=== PATIENT | male | born 1985 | race Caucasian/White ===

== ENCOUNTER 2022-01-01 17:50 | Emergency (ER) | payer BC, SELFPAY ==
[2022-01-01 20:41] LABS: Absolute Lymphocytes (CBC) 2.1 K/uL (0.7-4.9); Hematocrit 42.2 % (39.6-49.0); Lymphocytes % 29.7 % (15.3-44.8); MCV 88.1 fL (80-100); MPV 6.6 fL (7.6-11.3); RBC Red Blood Cell Count 4.79 M/uL (4.33-5.43)
[2022-01-01 20:43] LABS: Protime INR 1.02
[2022-01-01 20:50] LABS: Urine Blood Negative (Negative); Urine Glucose Negative (Negative); Urine Protein Negative (Negative); Urine Specific Gravity 1.025 (1.005-1.030); Urine pH 5.5 (5.0-7.0)
[2022-01-01] MEDS ORDERED: NA CHLORIDE 0.9% 1,000 ML ONE (21:06)
[2022-01-01] MEDS ORDERED: ONDANSETRON 4 MG/2 ML VIAL ONE (21:06)
[2022-01-01 21:12] LABS: Barbiturates NEGATIVE (NEGATIVE); Benzodiazepines NEGATIVE (NEGATIVE); Cocaine NEGATIVE (NEGATIVE); METHAMPHETAM NEGATIVE (NEGATIVE); Methadone NEGATIVE (NEGATIVE); Opiates NEGATIVE (NEGATIVE); Phencyclidine NEGATIVE (NEGATIVE); THC Cannibis NEGATIVE (NEGATIVE)
[2022-01-01 21:20] LABS: Albumin 4.5 g/dL (3.4-5.0); Bilirubin Direct 0.2 mg/dL (0-0.2); Magnesium 1.5 mg/dL (1.8-2.4); Potassium 3.4 mmol/L (3.5-5.1); Protein, Total 7.6 g/dL (6.4-8.2)
[2022-01-01 21:27] LABS: Urine Bacteria <20 /HPF (<20); Urine RBC <5 /HPF (None Seen)
[2022-01-01] MEDS ORDERED: MAGNESIUM SULFATE 1 gm IVPB 0 GM/0 ML BAG IV ONE (21:52)
[2022-01-01] MEDS ORDERED: Magnesium Sulfate 2gm IVPB 2 G/50 ML BAG IV ONE (22:00)
--- NOTE | 2022-01-01 23:01 | ER ---
Nurse's Notes [facility] Name: Anam Mares Age: 36 yrs Sex: Male : 1985 Arrival Date: 01/01/2022 Time: 17:54 Bed 2 Private MD: Diagnosis: Hypomagnesemia;Hypokalemia;Hypertensive heart disease without heart failure Presentation: 01/01 18:05 Chief complaint: Patient states: "I was in the hospital last week for dehydration, I hb feel like that again." Pt reports he is diabetic, has not checked BGL "in a few days" because he "didn't feel like it" and has consumed approx 8 bottles of water today. Coronavirus screen: At this time, the client does not indicate any symptoms associated with coronavirus-19. Ebola Screen: No symptoms or risks identified at this time. Initial Sepsis Screen: Does the patient meet any 2 criteria? No. Patient's initial sepsis screen is negative. Does the patient have a suspected source of infection? No. Patient's initial sepsis screen is negative. Risk Assessment: Do you want to hurt yourself or someone else? Patient reports no desire to harm self or others. Onset of symptoms was January 01, 2022. 18:05 Method Of Arrival: Ambulatory hb 18:05 Acuity: MAYA 3 hb Historical: - Allergies: 23:51 No Known Allergies; aa9 - Immunization history:: Adult Immunizations up to date. - Social history:: Smoking status: unknown. Screenin:51 Abuse screen: Denies threats or abuse. Denies injuries from another. Nutritional aa9 screening: No deficits noted. Tuberculosis screening: No symptoms or risk factors identified. Fall Risk None identified. Assessment: 22:50 General: Appears in no apparent distress. comfortable, Behavior is calm, cooperative. aa9 Pain: Denies pain. Vital Signs: 18:05 BP 182 / 106; Pulse 88; Resp 16; Temp 98.5; Pulse Ox 100% on R/A; Weight 107.05 kg; hb Height 6 ft. 3 in. (190.50 cm); Pain 0/10; 22:48 BP 150 / 90; Pulse 68; Resp 16 S; Pulse Ox 100% on R/A; Pain 0/10; aa9 23:52 BP 134 / 81; Pulse 63; Resp 18; Pulse Ox 100% on R/A; kd3 18:05 Body Mass Index 29.50 (107.05 kg, 190.50 cm) hb ED Course: 17:54 Patient arrived in ED. as 18:05 Arm band placed on. hb 18:10 Triage completed. hb 18:15 Jordi Bolaños PA is PHCP. cp 18:15 Benja Schaefer DO is Attending Physician. cp 18:33 Stepan Clancy MD is Attending Physician. cp 20:19 Raj Hall, LO is Primary Nurse. as6 20:29 Inserted saline lock: 20 gauge in right antecubital area, using aseptic technique. as6 Blood collected. 20:31 Basic Metabolic Panel Sent. as6 20:31 CBC with Diff Sent. as6 20:31 LFT's Sent. as6 20:31 PT-INR Sent. as6 20:31 Magnesium Sent. as6 20:52 Basic Metabolic Panel Sent. as6 20:52 LFT's Sent. as6 20:52 Magnesium Sent. as6 22:51 Patient has correct armband on for positive identification. Placed in gown. Bed in low aa9 position. Call light in reach. Side rails up X2. Adult w/ patient. 23:51 No provider procedures requiring assistance completed. IV discontinued, intact, aa9 bleeding controlled, No redness/swelling at site. Pressure dressing applied. Administered Medications: 21:07 Drug: NS 0.9% 1000 ml Route: IV; Rate: 1 bolus; Site: right antecubital; aa9 22:07 Follow up: Response: No adverse reaction; IV Status: Completed infusion; IV Intake: as6 1000ml 21:07 Not Given (Patient Refused): Zofran (Ondansetron) 4 mg IVP once; over 2 minutes aa9 22:00 Drug: Magnesium Sulfate 2 grams Route: IVPB; Infused Over: 2 hrs; Site: right as6 antecubital; 23:52 Follow up: Response: No adverse reaction; IV Status: Completed infusion kd3 Medication: 23:51 VIS not applicable for this client. aa9 Intake: 22:07 IV: 1000ml; Total: 1000ml. as6 Outcome: 23:01 Discharge ordered by . cp 23:51 Discharged to home ambulatory. aa9 23:51 Condition: stable 23:51 Discharge instructions given to patient, family, Instructed on discharge instructions, follow up and referral plans. Demonstrated understanding of instructions, follow-up care. 23:53 Patient left the ED. kd3 Signatures: Shira Wallace Corey, PA PA cp Baxter, Heather, LO RN Raj Hall RN RN as6 Crissy Morales RN RN kd3 Vanessa Rico, RN RN aa9
--- NOTE | 2022-01-01 23:01 | EDPHYS ---
Physician Documentation [facility] Name: Anam Mares Age: 36 yrs Sex: Male : 1985 Arrival Date: 01/01/2022 Time: 17:54 Bed 2 Private MD: ED Physician Stepan Clancy HPI: 01/01 19:45 This 36 yrs old Male presents to ER via Ambulatory with complaints of dehydration. cp 19:45 Patient reports being hospitalized last week for acute kidney failure due to blood cp pressure medication. Patient came to ED tonight to be evaluated. Reports he is having similar symptoms. Denies chest pain, denies abdominal pain, denies vomiting, denies diarrhea. Historical: - Allergies: 23:51 No Known Allergies; aa9 - Immunization history:: Adult Immunizations up to date. - Social history:: Smoking status: unknown. ROS: 19:50 Constitutional: Negative for body aches, chills, fever, poor PO intake. cp 19:50 Eyes: Negative for injury, pain, redness, and discharge. cp 19:50 ENT: Negative for drainage from ear(s), ear pain, sore throat, difficulty swallowing, difficulty handling secretions. 19:50 Cardiovascular: Negative for chest pain, edema, palpitations. 19:50 Respiratory: Negative for cough, shortness of breath, wheezing. 19:50 Abdomen/GI: Negative for abdominal pain, nausea, vomiting, and diarrhea, black/tarry stool, rectal bleeding. 19:50 : Negative for urinary symptoms, difficulty urinating. 19:50 Neuro: Negative for altered mental status, headache, loss of consciousness, syncope, weakness. 19:50 All other systems are negative. Exam: 19:55 Constitutional: The patient appears in no acute distress, alert, awake, cp non-diaphoretic, non-toxic, well developed, well nourished. 19:55 Head/Face: Normocephalic, atraumatic. cp 19:55 Eyes: Periorbital structures: appear normal, Pupils: equal, round, and reactive to light and accomodation, Extraocular movements: intact throughout, Conjunctiva: normal, no exudate, no injection, Sclera: no appreciated abnormality, Lids and lashes: appear normal, bilaterally. 19:55 ENT: External ear(s): are unremarkable, Nose: is normal, Mouth: Lips: moist, Oral mucosa: pink and intact, moist, Posterior pharynx: Airway: no evidence of obstruction, patent. 19:55 Neck: ROM/movement: is normal, is supple, without pain, no range of motions limitations. 19:55 Chest/axilla: Inspection: normal, Palpation: is normal, no crepitus, no tenderness. 19:55 Cardiovascular: Rate: normal, Rhythm: regular, Edema: is not appreciated, JVD: is not appreciated. 19:55 Respiratory: the patient does not display signs of respiratory distress, Respirations: normal, no use of accessory muscles, no retractions, labored breathing, is not present, Breath sounds: are clear throughout, no decreased breath sounds, no stridor, no wheezing. 19:55 Abdomen/GI: Inspection: abdomen appears normal, Palpation: abdomen is soft and non-tender, in all quadrants. 19:55 Back: pain, is absent, ROM is normal. 19:55 Neuro: Orientation: to person, place \T\ time. Mentation: is normal, Cerebellar function: is grossly normal, Motor: moves all fours, strength is normal, Sensation: is normal. 20:10 ECG was reviewed by the Attending Physician. Vital Signs: 18:05 BP 182 / 106; Pulse 88; Resp 16; Temp 98.5; Pulse Ox 100% on R/A; Weight 107.05 kg; hb Height 6 ft. 3 in. (190.50 cm); Pain 0/10; 22:48 BP 150 / 90; Pulse 68; Resp 16 S; Pulse Ox 100% on R/A; Pain 0/10; aa9 23:52 BP 134 / 81; Pulse 63; Resp 18; Pulse Ox 100% on R/A; kd3 18:05 Body Mass Index 29.50 (107.05 kg, 190.50 cm) hb MDM: 20:14 Patient medically screened. 23:00 Data reviewed: vital signs, nurses notes, lab test result(s), EKG. 23:00 Test interpretation: by ED physician or midlevel provider: ECG. Counseling: I had a cp detailed discussion with the patient and/or guardian regarding: the historical points, exam findings, and any diagnostic results supporting the discharge/admit diagnosis, the presence of at least one elevated blood pressure reading (>120/80) during this emergency department visit, lab results, the need for outpatient follow up, a family practitioner, to return to the emergency department if symptoms worsen or persist or if there are any questions or concerns that arise at home. Response to treatment: the patient's symptoms have markedly improved after treatment, and as a result, I will discharge patient. 01/01 18:21 Order name: Glucose, Ancillary Testing; Complete Time: 21:35 EDMS 01/01 19:35 Order name: Basic Metabolic Panel; Complete Time: 21:35 cp 01/01 21:35 Interpretation: Normal except: K 3.4; GLUC 107. cp 01/01 19:35 Order name: CBC with Diff; Complete Time: 21:35 cp 01/01 19:35 Order name: LFT's; Complete Time: 21:35 cp 01/01 19:35 Order name: Magnesium; Complete Time: 21:35 cp 01/01 19:35 Order name: PT-INR; Complete Time: 21:35 cp 01/01 19:35 Order name: EKG; Complete Time: 19:35 cp 01/01 19:35 Order name: Cardiac monitoring; Complete Time: 20:52 cp 01/01 19:35 Order name: Urine Microscopic Only; Complete Time: 21:35 cp 01/01 19:35 Order name: UDS; Complete Time: 21:35 cp 01/01 20:51 Order name: Urine Dipstick-Ancillary; Complete Time: 21:35 EDMS 01/01 19:35 Order name: EKG - Nurse/Tech; Complete Time: 20:52 cp 01/01 19:35 Order name: IV Saline Lock; Complete Time: 20:30 cp 01/01 19:35 Order name: Labs collected and sent; Complete Time: 20:30 cp 01/01 19:35 Order name: O2 Per Protocol; Complete Time: 20:52 cp 01/01 19:35 Order name: O2 Sat Monitoring; Complete Time: 20:52 cp 01/01 19:35 Order name: Urine Dipstick-Ancillary (obtain specimen); Complete Time: 20:52 cp 01/01 21:36 Order name: PO challenge; Complete Time: 22:06 cp 01/01 22:44 Order name: Vital Signs; Complete Time: 22:49 cp EC:10 Rate is 106 beats/min. Rhythm is regular. VA interval is normal. QRS interval is cp normal. QT interval is normal. T waves are Inverted in lead aVR. Interpreted by me. Reviewed by me. Administered Medications: 21:07 Drug: NS 0.9% 1000 ml Route: IV; Rate: 1 bolus; Site: right antecubital; aa9 22:07 Follow up: Response: No adverse reaction; IV Status: Completed infusion; IV Intake: as6 1000ml 21:07 Not Given (Patient Refused): Zofran (Ondansetron) 4 mg IVP once; over 2 minutes aa9 22:00 Drug: Magnesium Sulfate 2 grams Route: IVPB; Infused Over: 2 hrs; Site: right as6 antecubital; 23:52 Follow up: Response: No adverse reaction; IV Status: Completed infusion kd3 Disposition: 01/02 01:04 Co-signature as Attending Physician, Stepan Clancy MD. rn Disposition Summary: 01/01/22 23:01 Discharge Ordered Location: Home cp Problem: new cp Symptoms: have improved cp Condition: Stable cp Diagnosis - Hypomagnesemia cp - Hypokalemia cp - Hypertensive heart disease without heart failure cp Followup: cp - With: Private Physician - When: 2 - 3 days - Reason: Recheck today's complaints Discharge Instructions: - Discharge Summary Sheet cp - Potassium Content of Foods cp - Hypertension, Adult cp - Hypomagnesemia cp - Aspirin and Your Heart cp - Form - Blood Pressure Record Sheet cp - How to Take Your Blood Pressure cp Forms: - Medication Reconciliation Form cp - Thank You Letter cp - Antibiotic Education cp - Prescription Opioid Use cp - Work release form cp Signatures: Dispatcher [employer] EDStepan Gates MD MD rn Page, Corey, PA PA cp Raj Hall RN RN as6 Vanessa Rico RN RN aa9 Crissy Morales RN kd3 Corrections: (The following items were deleted from the chart) 21:57 01/01 19:45 Patient reports being hospitalized last week for acute kidney failure due cp to blood pressure medication. cp
[2022-01-02 00:09] VITALS: TEMP 98.5; O2SAT 100
[2022-01-02 00:12] VITALS: BP 134/81
--- NOTE | 2022-01-02 07:21 | EKG ---
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
--- OUTSIDE RECORDS SUMMARY | 2022-01-03 14:35 | XMS REPORT | Continuity of Care Document ---
:1985 Author Organization [facility] t Address [address] [place] [address] Care Team Providers Name Role Phone [facility] Primary Care Physician Unavailable Shaq WILSON Attending Clinician Erik GARRETTP Attending Clinician Oksana NOVAK Attending Clinician OKSANA Attending Clinician Unavailable Oksana NOVAK Admitting Clinician OKSANA Admitting Clinician Unavailable Problems Condition Condition Condition Status Onset Resolution Last Treating Co mments Source Name Details Category Date Date Treatment Clinician Date VILMA (acute VILMA (acute Disease Active U nivers kidney kidney 12-22 ity of injury) injury) 00:00: [place] [address] Medical Branch Obesity Obesity Disease Active Univers (BMI (BMI 12-22 ity of 30-39.9) 30-39.9) 00:00: [place] [address] Medical Branch Allergies, Adverse Reactions, Alerts Allergy Allergy Status Severity Reaction(s) Onset Inactive Treating Comm ents Source Name Type Date Date Clinician Cefaclor Propensi Active Rash Univer s ty to 12-22 ity of adverse 00:00: [place] reaction Medical s Branch CEFACLOR DRUG Active Rash Univers INGREDI 12-22 ity of 00:00: [place] 00 Medical Branch NO KNOWN Drug Active Univers ALLERGIE Class ity of S [facility] Social History Social Habit Start Date Stop Date Quantity Comments Source History SDOH University o f Alcohol Frequency [facility] edical Branch History SDOH University o f Alcohol Std [place] Medical Drinks Branch History SDNE University o f Alcohol Binge [place] Medic al Branch Exposure to 2021-12-12 2021-12-22 Not sure University of SARS-CoV-2 00:00:00 14:43:00 [place] Medical (event) Branch Tobacco use and 2021-12-22 2021-12-22 User of smokeless Un iversity of exposure 00:00:00 00:00:[address] [facility] Alcohol intake 2021-12-22 2021-12-22 Current drinker of Un iversity of 00:00:00 00:00:00 alcohol (finding) [facility] edical Branch Alcohol Comment 2021-12-22 2021-12-22 occassional Universi ty of 00:00:00 00:00:00 [facility] Sex Ass[birth year] Universit y of 00:00:00 00:00:00 [facility] Smoking Status Start Date Stop Date Source Tobacco smoking consumption Univ ersity of [facility] unknown Branch Medications Ordered Filled Start Stop Current Ordering Indication Dosage Frequency Signature Comments Components Source Medication Medication Date Date Medication? Clinician (SIG) Name Name metFORMIN Yes 1000mg Take 1,000 Univers 500 mg 7-11 mg by ity of tablet 22:00: mouth 2 [place] [address] (two) Medical times Branch daily with meals. fenofibrate Yes 54mg Take 54 mg Univers 54 mg 7-11 by mouth ity of tablet 22:00: daily. [address] Branch rosuvastati Yes 10mg Take 10 mg Univers n 10 mg 7-11 by mouth ity of tablet 22:00: at [place] [address] bedtime. Medical Branch fenofibrate Yes 67mg 67 mg, Univ ers micronized 7-10 Oral, ity of (LOFIBRA) 14:00: DAILY, [place] capsule 67 00 First dose Med ical mg on Sun Branch 12/23/21 at 0900, Until Discontinu ed metFORMIN Yes 1000mg Take 1,000 Univers 500 mg 7-10 mg by ity of tablet 11:44: mouth 2 [place] [address] (two) Medical times [place] daily with meals. fenofibrate Yes 54mg Take 54 mg Univers 54 mg 7-10 by mouth ity of tablet 11:44: daily. [place] [address] Medical Branch rosuvastati Yes 10mg Take 10 mg Univers n 10 mg 7-10 by mouth ity of tablet 11:44: at [place] [address] bedtime. Medical Branch olmesartan- 2021- No 1{tbl} Take 1 U nivers hydrochloro 7-10 07-10 tablet by it y of thiazide 09:02: 00:00 mouth [place] 40-25 mg 44 :00 daily. Medical per tablet Branch rosuvastati Yes 10mg 10 mg, Univ ers n (CRESTOR) 7-10 Oral, QHS, it y of tablet 10 02:00: [place] dose [place] mg 00 on [facility] Medical 12/22/21 at Branch 2100, Until Discontinu ed, Routine NaCl 0.9% Yes 1000mL at 125 Univ ers (NS) IV 709 mL/hr, IV ity of infusion 17:30: [place]fusion[place] 1[place]000 mL 00 CONTINUOUS Medic al , Starting Branch on [facility] 12/22/21 at 1230, Until Discontinu ed, Routine ondansetron Yes 4mg 4 mg, Slow Univers (ZOFRAN 12-22 IV Push, ity of (PF)) 17:19: Q6HPRN, [place] injection 4 53 Starting Medi [place] mg on [facility] 12/22/21 at 1219, Until Discontinu ed, Routine, Nausea and Vomiting (N/V) morpHINE (4 2021- Yes 4mg 4 mg, Slow Univers mg/mL) 12-22 IV Push, ity of injection 4 17:19: 17:18 Q4HPRN, [place] mg 51 :51 Starting Medical on [facility] Branch 12/22/21 at 1219, Until 12/23/21 at 1218, Routine, Pain (scale 7-10) HYDROcodone 2021- Yes 1{tbl} 1 tablet, Univers -acetaminop 12-22 Oral, ity of hen (NORCO 17:19: 17:18 Q6HPRN, [place] 5) 5-325 mg 50 :50 Starting Medi [place] tablet 1 on Sat Branch tablet 12/22/21 at 1219, Until 12/24/21 at 1218, Routine, Pain (scale 4-6) acetaminoph Yes 650mg 650 mg, Un tash en 12-22 Oral, ity of (TYLENOL) 17:19: Q6HPRN, [place] tablet 650 42 Starting Medic al mg on Sat Branch 12/22/21 at 1219, Until Discontinu ed, Routine, Pain (scale 1-3), Temp > 38.5 C NaCl 0.9% 2021- No 1000mL at 999 Uni vers (NS) bolus 12-22 mL/hr, ity of infusion 15:30: 15:28 1,000 mL, [place] 1,000 mL 00 :00 IV Medical Infusion, Branch ONCE, 1 dose, On 12/22/21 at 1030, KRYSTIN NaCl 0.9% 2021- No 1000mL at 999 Uni vers (NS) bolus 12-22 mL/hr, ity of infusion 15:30: 19:58 1,000 mL, [place] 1,000 mL 00 :00 IV Medical Infusion, Branch ONCE, 1 dose, On 12/22/21 at 1030, KRYSTIN magnesium 2021- No 2g 2 g, IV Univ ers sulfate in 12-22 Piggyback, it y of water 2 15:30: 15:28 Administer Tom as gram/50 mL 00 :00 over 60 Medica l (4 %) Minutes, Branch infusion 2 ONCE, 1 g dose, On 12/22/21 at 1030, Routine Vital Signs Vital Name Observation Time Observation Value Comments Source Systolic blood 2021-12-23 13:00:00 138 mm[Hg] Univer sity of pressure [facility] Diastolic blood 2021-12-23 13:00:00 93 mm[Hg] Unive rsity of [facility] Heart rate 2021-12-23 13:00:00 87 /min [facility] Body temperature 2021-12-23 13:00:00 36.56 [facility]ana [facility] Respiratory rate 2021-12-23 13:00:00 18 /min [facility] Oxygen saturation in 2021-12-23 13:00:00 100 /min [facility] Arterial blood by [facility] Pulse oximetry Branch Body weight 2021-12-23 09:00:00 107.457 kg [facility] BMI 2021-12-23 09:00:00 30.01 kg/m2 [facility] Body height 2021-12-22 19:47:00 189.2 cm [facility] Procedures Procedure Date / Time Performing Clinician Source Performed MAGNESIUM 2021-12-23 09:56:00 Oksana [facility] BASIC METABOLIC PANEL 2021-12-23 09:56:00 [facility] ([facility], K, CL, CO2, Medical Branch GLUCOSE, BUN, CREATININE, CA) CBC WITH DIFF 2021-12-23 09:56:00 [facility] 2021-12-22 21:38:00 [facility] POTASSIUM, URINE RANDOM 2021-12-22 21:38:00 Roshan [facility] SODIUM, URINE RANDOM 2021-12-22 21:38:00 Roshan [facility] PROTEIN CREAT RATIO 2021-12-22 21:38:00 Roshan [facility] URINE RANDOM [facility] PHOSPHORUS 2021-12-22 21:11:00 Gaudencio Gandhi [facility] OSMOLALITY, SERUM OR 2021-12-22 21:11:00 Roshan [facility] PLASMA [facility] BASIC METABOLIC PANEL 2021-12-22 21:11:00 [facility] (NA, K, CL, CO2, Medical Branch GLUCOSE, BUN, CREATININE, CA) ACUTE CARE VENOUS BLOOD 2021-12-22 21:10:00 Lucie Barakat [facility] GAS [facility] LACTIC ACID WHOLE BLOOD 2021-12-22 21:10:00 Lucie Barakat [facility] COVID-19 (ID NOW RAPID 2021-12-22 14:42:00 Camelia Valencia [facility] TESTING) Medical Branch URINALYSIS 2021-12-22 13:46:00 Camelia Valencia [facility] PHOSPHORUS 2021-12-22 13:45:00 Erik [facility] CREATINE KINASE 2021-12-22 13:45:00 Erik [facility] MAGNESIUM 2021-12-22 13:45:00 [facility] COMP. MET[facility]OLIC PANEL 2021-12-22 13:45:00 Camelia Valencia [facility] ([id number]) Medical Branch LIPID PANEL 2021-12-22 13:45:00 Lucie Barakat [facility] ([id number])(TOTAL [facility] CHOLESTEROL, TRIGLYCERIDES, HDL) CBC WITH DIFF 2021-12-22 13:45:00 Erik [facility] GLYCOSYLATED HEMOGLOBIN 2021-12-22 13:45:00 Lucie Barakat [facility] (A1C) [facility] LOW-DENSITY 2021-12-22 13:45:00 Lucie Barakat [facility] LIPOPROTEIN, DIRECT Medical Bran ch CONSENT/REFUSAL FOR 2021-12-22 12:57:09 Doctor Unassigned, No Un [facility] DIAGNOSIS AND TREATMENT Name Medical Branch Encounters Start End Encounter Admission Attending Care Care Encounter Source Date/Time Date/Time Type Type Clinicians Facility Department ID 2021-12-25 2021-12-25 Transition SHAHIDA New [id number] Univers 00:00:00 00:00:00 of Care Miriam GUILLAUME [id number] ity of [place] [id number] [facility] [id number] [facility] kayleigh 403 Branch 2021-12-22 2021-12-23 [facility] [id number] Univers 08:23:00 10:00:00 Encounter Gaudencio Gandhi [id number] ity of [place] [id number] [facility] [id number] [address] 2021-12-22 2021-12-23 Inpatient X [facility]SANA [facility] [id number] Univers 08:23:00 10:00:00 GAUDENCIO hicks [facility] Results Test Description Test Time Test Comments Results Result Comments Source Basic Metabolic Panel (NA, K, CL, CO2, GLUCOSE, BUN, 2021-12 11:02:15 CREATININE, CA) Test Item Value Reference Range Interpretation Comme nts NA (test code = 6816506837) 135 mmol/L 135-145 K (test code = 8501928693) 3.7 mmol/L 3.5-5 CL (test code = 3097516507) 103 mmol/L 98-108 CO2 TOTAL (test code = 5427908617) 23 mmol/L 23-31 AGAP (test code = 1797617456) 2-16 BUN (test code = 0753535144) 34 mg/dL 7-23 H GLUCOSE (test code = 0394093641) 171 mg/dL 70-110 H CREATININE (test code = 1.29 mg/dL 0.6-1.25 H 5938958714) CALCIUM (test code = 6094523688) 8.4 mg/dL 8.6-10.6 L eGFR (test code = 3832315554) mL/min/1.73m2 BEATRICE (test code = BEATRICE) Association of Glomerular Filtration Rate (GFR) and Staging of Kidney Disease* + +-------- + ------+| GFR (mL/min/1.73 m2) ?| With Kidney Damage ?| ?Without Kidney Damage+ +-- + +| ?>90 ?| ?Stage one ?| ? Normal ?+ +------- + -------+| ?60-89 ?| ?Stage two ?| ? Decreased GFR ? + +-------- + ------+| ?30-59 ?| ?Stage three ?| ? Stage three ? + +-------- + ------+| ?15-29 ?| ?Stage four ? | ? Stage four ?+ +------- + -------+| ?<15 (or dialysis) ? ?| ?Stage five ? | ? Stage five ?+ +------- + -------+ *Each stage assumes the associated GFR level has been in effect for at least three months. ?Stages 1 to 5, with or without kidney disease, indicate chronic kidney disease. Notes: Determination of stages one and two (with eGFR >59mL/min/1.73 m2) requires estimation of kidney damage for at least three months as defined by structural or functional abnormalities of the kidney, manifested by either:Pathological abnormalities or Markers of kidney damage (including abnormalities in the composition of the blood or urine or abnormalities in imaging tests). Lab Interpretation (test code = Abnormal 90131-3) [facility] [id number] 11:02:15 Test Item Value Reference Range Interpretation Comments MAGNESIUM (test code = 9869456893) 2.1 mg/dL 1.7-2.4 Lab Interpretation (test code = Normal 52954-8) [facility] with [id number] 10:34:49 Test Item Value Reference Range Interpretation Comments WBC (test code = See_Comment [Automated 6690-2) message] The sy stem which generated this result transmitted reference range : 4.20 - 10.70 10*3/?L. The reference range was not used to interpret this result as normal/abnormal . RBC (test code = See_Comment L [Automated 789-8) message] The sy stem which generated this result transmitted reference range : 4.26 - 5.52 10*6/?L. The reference range was not used to interpret this result as normal/abnormal . HGB (test code = 12.6 g/dL 12.2-16.4 718-7) HCT (test code = 35.0 % 38.4-49.3 L 4544-3) MCV (test code = 89.3 fL 81.7-95.6 787-2) MCH (test code = 32.1 pg 26.1-32.7 785-6) MCHC (test code = 36.0 g/dL 31.2-35 H 786-4) RDW-SD (test code = 44.1 fL 38.5-51.6 10639-1) RDW-CV (test code = 14.0 % 12.1-15.4 788-0) PLT (test code = See_Comment L [Automated 777-3) message] The sy stem which generated this result transmitted reference range : 150 - 328 10*3/ ?L. The reference r emily was not used to interpret this result as normal/abnormal . MPV (test code = 9.7 fL 9.8-13 L 96357-4) IPF % (test code = 2.9 % 1.2-10.7 Platelet count 1273197967) measured by fluorescence method. NRBC/100 WBC (test See_Comment [Automat ed code = 3628457656) message] The system which generated this result transmitted reference range : 0.0 - 10.0 /100 WBCs. The refer ence range was not u sed to interpret th is result as normal/abnormal . NRBC x10^3 (test code See_Comment [Auto mated = 3287986038) message] The s ystem which generated this result transmitted reference range : 10*3/?L. The reference range was not used to interpret this result as normal/abnormal . GRAN MAT (NEUT) % 49.8 % (test code = 770-8) IMM GRAN % (test code 0.30 % = 1957945709) LYMPH % (test code = 32.0 % 736-9) MONO % (test code = 9.4 % 5905-5) EOS % (test code = 7.9 % 713-8) BASO % (test code = 0.6 % 706-2) GRAN MAT x10^3(ANC) 3.13 10*3/uL 1.99-6.95 (test code = 9520758671) IMM GRAN x10^3 (test 0-0.06 code = 5711731713) LYMPH x10^3 (test code 2.01 10*3/uL 1.09-3.23 = 731-0) MONO x10^3 (test code 0.59 10*3/uL 0.36-1.02 = 742-7) EOS x10^3 (test code = 0.50 10*3/uL 0.06-0.53 711-2) BASO x10^3 (test code 0.04 10*3/uL 0.01-0.09 = 704-7) Lab Interpretation Abnormal (test code = 26352-3) [facility] LIPOPROTEIN, [id number] 23:29:35 Test Item Value Reference Range Interpretation Comments dLDL Chol (test code = 50 mg/dL See_Comment [Au tomated message] 21158-8) The system [employer] generated this result transmitted ref erence range: <=130. T he reference range was not used to int erpret this result as normal/abnormal . Lab Interpretation (test Normal code = 90538-2) [facility]woodOSMOLALITY, SERUM OR [id number] 23:28:44 Test Item Value Reference Range Interpretation Comments OSMOLALITY (test code = See_Comment [Au tomated message] 2692-2) The system [employer] generated this result transmitted ref erence range: 278 - 30 5 mOsm/kg. The re ference range was not u sed to interpret this result as normal/abnor mal. Lab Interpretation (test Normal code = 14675-9) [facility] METABOLIC PANEL (NA, K, CL, CO2, GLUCOSE, BUN, CREATININE, CA)2021-12-22 21:38:29 Test Item Value Reference Range Interpretation Comments NA (test code = 132 mmol/L 135-145 L 8996346957) K (test code = 3.8 mmol/L 3.5-5 9845252777) CL (test code = 98 mmol/L 98-108 4966149664) CO2 TOTAL (test code = 22 mmol/L 23-31 L 9292377366) AGAP (test code = 2-16 1336442521) BUN (test code = 41 mg/dL 7-23 H 9631298962) GLUCOSE (test code = 124 mg/dL 70-110 H 1020342346) CREATININE (test code = 2.21 mg/dL 0.6-1.25 H 5553996355) CALCIUM (test code = 8.8 mg/dL 8.6-10.6 3432943341) eGFR (test code = mL/min/1.73m2 6410385247) BEATRICE (test code = BEATRICE) Association of Glomerular Filtration Rate (GFR) and Staging of Kidney Disease* + --+ --+ ------+| GFR (mL/min/1.73 m2) ?| With Kidney Damage ?| ?Without Kidney Damage+ --------+ --------+ +| ?>90 ?| ?Stage one ?| ? Normal ?+ ---+ ---+ -------+| ?60-89 ?| ?Stage two ?| ? Decreased GFR ? + --+ --+ ------+| ?30-59 ?| ?Stage three ?| ? Stage three ? + --+ --+ ------+| ?15-29 ?| ?Stage four ? | ? Stage four ?+ ---+ ---+ -------+| ?<15 (or dialysis) ? ?| ?Stage five ? | ? Stage five ?+ ---+ ---+ -------+ *Each stage assumes the associated GFR level has been in effect for at least three months. ?Stages 1 to 5, with or without kidney disease, indicate chronic kidney disease. Notes: Determination of stages one and two (with eGFR >59mL/min/1.73 m2) requires estimation of kidney damage for at least three months as defined by structural or functional abnormalities of the kidney, manifested by either:Pathological abnormalities or Markers of kidney damage (including abnormalities in the composition of the blood or urine or abnormalities in imaging tests). Lab Interpretation Abnormal (test code = 34388-2) [facility]wood[facility]osphorus [id number] 21:37:29 Test Item Value Reference Range Interpretation Comments PHOSPHORUS (test code = 9009844440) 3.7 mg/dL 2.5-5 Lab Interpretation (test code = Normal 12165-5) [facility]woodLactic Acid Whole [id number] 21:14:55 Test Item Value Reference Range Interpretation Comments LACTIC ACID (test code = 1.66 mmol/L 0.5-2.2 2767376382) Lab Interpretation (test code = Normal 62981-4) [facility] VENOUS BLOOD [id number] 21:14:55 Test Item Value Reference Range Interpretation Comments PH (test code = 7.32-7.42 9815871007) PCO2 BRI (test code = See_Comment L [Auto mated message] 5471144252) The system [employer] generated this result transmitted ref erence range: 41 - 51 mmHg. The reference r emily was not used to interpret this result as normal/abnor mal. PO2 BRI (test code = See_Comment [Autom ated message] 5322841181) The system [employer] generated this result transmitted ref erence range: 25 - 40 mmHg. The reference r emily was not used to interpret this result as normal/abnor mal. HCO3 BRI (test code = See_Comment L [Auto mated message] 8520773000) The system [employer] generated this result transmitted ref erence range: 24 - 28 mEq/L. The reference r emily was not used to interpret this result as normal/abnor mal. AC VBE(BEAKER) (test mEq/L code = 4656135536) Lab Interpretation (test Abnormal code = 37117-8) [facility]woodLIPID PANEL (45977)(TOTAL CHOLESTEROL, TRIGLYCERIDES, HDL)2021-12-22 20:33:38 Test Item Value Reference Range Interpretation Comments CHOL (test code = 247 mg/dL 120-200 H 1420967725) HDL (test code = 54 mg/dL See_Comment [Automated message] 3248301823) The system [employer] generated this result transmitted ref erence range: >=40. Th e reference range was not used to int erpret this result as normal/abnormal . HDLC RATIO (test code = See_Comment [Au tomated message] 0833076548) The system [employer] generated this result transmitted ref erence range: <=5.0. T he reference range was not used to int erpret this result as normal/abnormal . TRIG (test code = 800 mg/dL 30-170 H 6677806360) LDL CHOL (test code = Unable to calculate 85523-1) LDL due to elev ated triglyceride le julisa greater than 40 0 mg/dL. VLDL (test code = Unable to calculate 4443761225) VLDL due to sergio vated triglyceride le julisa greater than 71 0 mg/dL. Lab Interpretation Abnormal (test code = 61150-5) [facility]woodGLYCOSYLATED HEMOGLOBIN (A1C)2021-12-22 20:17:04 Test Item Value Reference Range Interpretation Comments HGB A1C (test code = 5.6 % 4-5.7 4548-4) BEATRICE (test code = BEATRICE) Reference RangesNormal: <5.7%Prediabetes: 5.7 - 6.4%Diabetes: > 6.5% Lab Interpretation (test Normal code = 30903-4) [facility]wood[facility]. METABOLIC PANEL (73644)2021-12-22 14:19:40 Test Item Value Reference Range Interpretation Comments NA (test code = 132 mmol/L 135-145 L 2847052148) K (test code = 4.0 mmol/L 3.5-5 9443842874) CL (test code = 91 mmol/L 98-108 L 0334705202) CO2 TOTAL (test code = 22 mmol/L 23-31 L 8405036245) AGAP (test code = 2-16 H 2398180653) BUN (test code = 47 mg/dL 7-23 H 0136250428) GLUCOSE (test code = 149 mg/dL 70-110 H 3452868921) CREATININE (test code = 4.01 mg/dL 0.6-1.25 H 4089244531) TOTAL BILI (test code = 1.0 mg/dL 0.1-1.9 8498942253) CALCIUM (test code = 9.7 mg/dL 8.6-10.6 5259647124) T PROTEIN (test code = 7.9 g/dL 6.3-8.2 1280332582) ALBUMIN (test code = 5.3 g/dL 3.5-5 H 7303637792) ALK PHOS (test code = 66 U/L 34-122 1903535547) ALTv (test code = 33 U/L 5-50 1742-6) AST(SGOT) (test code = 39 U/L 13-40 2296824938) eGFR (test code = mL/min/1.73m2 5878062687) BEATRICE (test code = BEATRICE) Association of Glomerular Filtration Rate (GFR) and Staging of Kidney Disease* + --+ --+ ------+| GFR (mL/min/1.73 m2) ?| With Kidney Damage ?| ?Without Kidney Damage+ --------+ --------+ +| ?>90 ?| ?Stage one ?| ? Normal ?+ ---+ ---+ -------+| ?60-89 ?| ?Stage two ?| ? Decreased GFR ? + --+ --+ ------+| ?30-59 ?| ?Stage three ?| ? Stage three ? + --+ --+ ------+| ?15-29 ?| ?Stage four ? | ? Stage four ?+ ---+ ---+ -------+| ?<15 (or dialysis) ? ?| ?Stage five ? | ? Stage five ?+ ---+ ---+ -------+ *Each stage assumes the associated GFR level has been in effect for at least three months. ?Stages 1 to 5, with or without kidney disease, indicate chronic kidney disease. Notes: Determination of stages one and two (with eGFR >59mL/min/1.73 m2) requires estimation of kidney damage for at least three months as defined by structural or functional abnormalities of the kidney, manifested by either:Pathological abnormalities or Markers of kidney damage (including abnormalities in the composition of the blood or urine or abnormalities in imaging tests). Lab Interpretation Abnormal (test code = 42425-0) [facility]2022-07-09 14:19:40 Test Item Value Reference Range Interpretation Comments MAGNESIUM (test code = 9925097412) 1.5 mg/dL 1.7-2.4 L Lab Interpretation (test code = Abnormal 04423-6) [facility]woodPH[facility]2022-07-09 14:19:19 Test Item Value Reference Range Interpretation Comments PHOSPHORUS (test code = 1494742544) 6.3 mg/dL 2.5-5 H Lab Interpretation (test code = Abnormal 74904-1) [facility]woodCREATINE [id number] 14:18:59 Test Item Value Reference Range Interpretation Comments CK (test code = 0891226095) 140 U/L 33-194 Lab Interpretation (test code = Normal 78321-7) [facility] BrownwoodCB WITH [id number] 14:04:56 Test Item Value Reference Range Interpretation Comments WBC (test code = See_Comment H [Automated 4046-2) message] The sy stem which generated this result transmitted reference range : 4.20 - 10.70 10*3/?L. The reference range was not used to interpret this result as normal/abnormal . RBC (test code = See_Comment [Automated 728-2) message] The sy stem which generated this result transmitted reference range : 4.26 - 5.52 10*6/?L. The reference range was not used to interpret this result as normal/abnormal . HGB (test code = 15.9 g/dL 12.2-16.4 718-7) HCT (test code = 43.4 % 38.4-49.3 4544-3) MCV (test code = 86.1 fL 81.7-95.6 787-2) MCH (test code = 31.5 pg 26.1-32.7 785-6) MCHC (test code = 36.6 g/dL 31.2-35 H 786-4) RDW-SD (test code = 41.1 fL 38.5-51.6 22326-7) RDW-CV (test code = 13.5 % 12.1-15.4 788-0) PLT (test code = See_Comment [Automated 777-3) message] The sy stem which generated this result transmitted reference range : 150 - 328 10*3/ ?L. The reference r emily was not used to interpret this result as normal/abnormal . MPV (test code = 9.9 fL 9.8-13 07169-0) NRBC/100 WBC (test See_Comment [Automat ed code = 2390163780) message] The system which generated this result transmitted reference range : 0.0 - 10.0 /100 WBCs. The refer ence range was not u sed to interpret th is result as normal/abnormal . NRBC x10^3 (test code See_Comment [Auto mated = 9288617017) message] The s ystem which generated this result transmitted reference range : 10*3/?L. The reference range was not used to interpret this result as normal/abnormal . GRAN MAT (NEUT) % 59.1 % (test code = 770-8) IMM GRAN % (test code 0.30 % = 8370026901) LYMPH % (test code = 20.9 % 736-9) MONO % (test code = 9.7 % 5905-5) EOS % (test code = 9.3 % 713-8) BASO % (test code = 0.7 % 706-2) GRAN MAT x10^3(ANC) 6.35 10*3/uL 1.99-6.95 (test code = 0511086447) IMM GRAN x10^3 (test 0.03 10*3/uL 0-0.06 code = 1073289811) LYMPH x10^3 (test code 2.24 10*3/uL 1.09-3.23 = 731-0) MONO x10^3 (test code 1.04 10*3/uL 0.36-1.02 H = 742-7) EOS x10^3 (test code = 1.00 10*3/uL 0.06-0.53 H 711-2) BASO x10^3 (test code 0.07 10*3/uL 0.01-0.09 = 704-7) Lab Interpretation Abnormal (test code = 48388-3) [facility]"
== END 2022-01-01 23:53 | disposition home or self-care (01) ==
LOC: ER 17:50
DX: E83.42 Hypomagnesemia (principal); E87.6 Hypokalemia; I11.9 Hypertensive heart disease without heart failure
CPT/HCPCS: 36415; 80048; 80076; 80307; 81003; 81015; 82947; 83735; 85025; 85610; 93005; 96361; 96365; 96366; 99283; J2405; J3475; J7030

== ENCOUNTER → 2023-08-10 | Emergency (ER) | payer SELFPAY ==
[~2023-08-10] MED LIST: FAMOTIDINE 20 MG/2 ML VIAL IV ONE; INSULIN REGULAR (HUMAN) 100 UNIT/ML ONE; METOPROLOL TAR 25 MG TAB ONE; NA CHLORIDE 0.9% 1,000 ML ONE; ONDANSETRON 4 MG/2 ML VIAL ONE
[2023-08-10 17:16] LABS: Hematocrit 51.6 % (39.6-49.0); MCV 87.4 fL (80-100); Platelets 219 thou/uL (152-406)
[2023-08-10 17:17] LABS: Absolute Lymphocytes (CBC) 3.5 K/uL (0.7-4.9)
[2023-08-10 17:27] LABS: Protime INR 0.95
[2023-08-10 17:29] LABS: Specific Gravity > 1.030 (1.005-1.030); Urine Bilirubin NEGATIVE (Negative); Urine Blood 1+ (Negative); Urine Clarity Clear (Clear); Urine Color Yellow (Yellow); Urine Glucose 4+ (Over) (Negative); Urine Protein 3+ (Negative); Urine Urobilinogen Normal (Normal)
[2023-08-10 17:30] LABS: Barbiturates NEGATIVE (NEGATIVE); Benzodiazepines NEGATIVE (NEGATIVE); Cocaine NEGATIVE (NEGATIVE); METHAMPHETAM NEGATIVE (NEGATIVE); Methadone NEGATIVE (NEGATIVE); Opiates NEGATIVE (NEGATIVE); Phencyclidine NEGATIVE (NEGATIVE); THC Cannibis NEGATIVE (NEGATIVE)
[2023-08-10 17:33] LABS: ALT/SGPT 165 U/L (16-61); AST/SGOT 94 U/L (15-37); Albumin 4.1 g/dL (3.4-5.0); Alkaline Phosphatase 93 U/L (45-117); BUN Blood Urea Nitrogen 9 mg/dL (7-18); Bicarbonate 23 mEq/L (21-32); Bilirubin Direct 0.2 mg/dL (0-0.2); Bilirubin Indirect, Calculated 0.4 mg/dL (0.2-0.8); Bilirubin Total 0.6 mg/dL (0.2-1.0); Glomerular Filtration Rate 92 ml/min (=/>90); Glucose Level 313 mg/dL (74-106); Potassium 3.6 mEq/L (3.5-5.1); Protein, Total 7.8 g/dL (6.4-8.2); Sodium Level 135 mEq/L (136-145)
--- NOTE | 2023-08-10 20:11 | EDPHYS ---
Physician Documentation [facility] Name: Anam Mares Age: 38 yrs Sex: Male : 1985 Arrival Date: 08/10/2023 Time: 16:35 Bed 14 Private MD: BEATRIS Physician Jordi Diaz HPI: 08/10 17:00 This 38 yrs old Male presents to ER via Ambulatory with complaints of ETOH Abuse. cp 17:00 The patient presents to the emergency department with a history of substance abuse, cp Type: vodka, daily. 17:00 Associated signs and symptoms: Pertinent positives; nausea, vomiting, Pertinent cp negatives: abdominal pain, chest pain, hallucinations, homicidal ideation, suicide ideation. 17:00 Patient reports he stopped taking prescribed medications for blood pressure and cp diabetes several months ago. Historical: - Allergies: 16:47 Ceclor; nj1 - PMHx: 16:47 Hypertensive disorder; Diabetes mellitus; nj1 - Immunization history:: Client reports having NOT received the Covid vaccine. - Social history:: Smoking status: Reported history of juuling and/or vaping. ROS: 17:05 Cardiovascular: Negative for chest pain, cp 17:05 Constitutional: Negative for body aches, chills, fever, poor PO intake, cp 17:05 Respiratory: Negative for cough, shortness of breath, wheezing, 17:05 Abdomen/GI: Positive for nausea and vomiting, Negative for diarrhea, constipation, hematemesis, black/tarry stool, rectal bleeding, 17:05 Neuro: Negative for headache, seizure activity, 17:05 Psych: Positive for alcohol dependence, Negative for homicidal ideation, suicide gesture, suicidal ideation, 17:05 All other systems are negative, Exam: 17:10 Constitutional: The patient appears in no acute distress, alert, awake, cp non-diaphoretic, non-toxic, well developed, well nourished, 17:10 Head/Face: Normocephalic, atraumatic. cp 17:10 Eyes: Periorbital structures: appear normal, Pupils: equal, round, and reactive to light and accomodation, Extraocular movements: intact throughout, Conjunctiva: normal, no exudate, no injection, Sclera: no appreciated abnormality, Lids and lashes: appear normal, bilaterally, 17:10 ENT: External ear(s): are unremarkable, Nose: is normal, Mouth: Lips: moist, Oral mucosa: pink and intact, moist, Posterior pharynx: Airway: no evidence of obstruction, patent, 17:10 Neck: ROM/movement: is normal, is supple, without pain, no range of motions limitations, 17:10 Chest/axilla: Inspection: normal, 17:10 Cardiovascular: Rate: tachycardic, Rhythm: regular, 17:10 Respiratory: the patient does not display signs of respiratory distress, Respirations: normal, no use of accessory muscles, no retractions, labored breathing, is not present, Breath sounds: are clear throughout, no decreased breath sounds, no stridor, no wheezing, 17:10 Abdomen/GI: Inspection: abdomen appears normal, Palpation: abdomen is soft and non-tender, in all quadrants, 17:10 Back: pain, is absent, ROM is normal, 17:10 Neuro: Orientation: to person, place \T\ time. Mentation: able to follow commands, Motor: moves all fours, strength is normal, Gait: is steady, 17:10 Psych: Affect is calm, Oriented to person, place, time, Patient has no thoughts/intents to harm self or others. Judgement / Insight is impaired. Delusions/hallucinations are not present. Vital Signs: 16:43 BP 163 / 120; Pulse 129; Resp 18; Temp 98.5(O); Pulse Ox 97% ; Weight 108.86 kg; Height nj1 6 ft. 2 in. ; 19:26 BP 146 / 101; Pulse 117; Resp 18; Pulse Ox 98% ; cp4 19:59 BP 146 / 101; Pulse 107; Resp 18; Pulse Ox 100% ; cp4 16:43 Body Mass Index 30.81 (108.86 kg, 187.96 cm) nj1 MDM: 16:48 Patient medically screened. cp 17:00 Differential diagnosis: drug withdrawal. acute psychotic break, depression, psychosis cp secondary to non-compliance. 20:10 Data reviewed: vital signs, nurses notes, lab test result(s), EKG. 20:10 I considered the following discharge prescriptions or medication management in the emergency department Medications were administered in the Emergency Department. See MAR. Care significantly affected by the following chronic conditions: Diabetes, Hypertension. Counseling: I had a detailed discussion with the patient and/or guardian regarding the historical points, exam findings, and any diagnostic results supporting the discharge/admit diagnosis, lab results, radiology results, to return to the emergency department if symptoms worsen or persist or if there are any questions or concerns that arise at home. Response to treatment: the patient's symptoms have mildly improved after treatment, and as a result, I will discharge patient. 08/10 16:53 Order name: Acetaminophen; Complete Time: 18:17 08/10 18:17 Interpretation: Reviewed. 08/10 16:53 Order name: Basic Metabolic Panel; Complete Time: 18:17 08/10 18:19 Interpretation: Normal except: NA 135; CL 97; ANION GAP 18.6; GLUC 313. 08/10 16:53 Order name: CBC with Diff; Complete Time: 17:45 08/10 17:45 Interpretation: Normal except: RBC 5.90; HGB 18.5; HCT 51.6; MPV 7.0. 08/10 16:53 Order name: ETOH Level; Complete Time: 17:45 08/10 17:46 Interpretation: Abnormal: ETOH 299. 08/10 16:53 Order name: Hepatic Function; Complete Time: 18:17 08/10 19:33 Interpretation: Normal except: AST 94; ALT 165; GLOB 3.7. 08/10 16:53 Order name: PT-INR; Complete Time: 17:45 08/10 16:53 Order name: Ptt, Activated; Complete Time: 17:45 08/10 16:53 Order name: Salicylate; Complete Time: 18:17 08/10 16:53 Order name: Urinalysis w/ reflexes; Complete Time: 17:45 08/10 17:46 Interpretation: Normal except: Urine SG > 1.030; UGLUC 4+ (Over); UKET 1+; UBLD 1+; cp UPROT 3+. 08/10 16:53 Order name: Urine Drug Screen; Complete Time: 17:45 08/10 17:46 Interpretation: Reviewed. 08/10 20:19 Order name: Glucose, Ancillary Testing EDMS 08/10 16:53 Order name: EKG; Complete Time: 16:54 08/10 16:53 Order name: EKG - Nurse/Tech; Complete Time: 19:38 08/10 16:53 Order name: IV Saline Lock; Complete Time: 17:14 08/10 16:53 Order name: Labs collected and sent; Complete Time: 17:14 08/10 16:53 Order name: Suicide Screening ([place]); Complete Time: 19:10 08/10 18:30 Order name: Vital Signs; Complete Time: 19:09 08/10 20:04 Order name: Accucheck Blood Glucose; Complete Time: 20:07 cp Administered Medications: 19:29 Drug: Insulin Regular Human Sub-Q 10 units Sub-Q once {Co-Signature: jw7 (Mariana Coates cp4 RN).} Route: Sub-Q; Site: right upper arm; 20:08 Follow up: Response: No adverse reaction cp4 19:35 Drug: NS 0.9% IV 1000 ml IV at 1 bolus Per protocol; 1000 mL bolus Route: IV; Rate: 1 cp4 bolus; Site: left antecubital; 19:35 Drug: Ondansetron IVP 4 mg IVP once; over 2 minutes Route: IVP; Site: left antecubital; cp4 20:07 Follow up: Response: No adverse reaction cp4 19:35 Drug: Famotidine IVP 20 mg IVP once; dilute with 10 mL 0.9% NaCl; give over 2 minutes cp4 Route: IVP; Site: left antecubital; 20:08 Follow up: Response: No adverse reaction cp4 19:59 Drug: Metoprolol PO 25 mg PO once Route: PO; cp4 Disposition Summary: 08/10/23 20:10 Discharge Ordered Notes: Location: Home cp Problem: new cp Symptoms: have improved cp Condition: Stable cp Diagnosis - Alcohol dependence with intoxication cp - Diabetes mellitus due to underlying condition with hyperglycemia cp - Hypertensive heart disease without heart failure cp Followup: cp - With: Private Physician - When: 2 - 3 days - Reason: Recheck today's complaints Discharge Instructions: - Discharge Summary Sheet cp - Alcohol Intoxication cp - Alcohol Use Disorder cp - Hyperglycemia cp - Hypertension, Adult cp - Daily Diabetes Mellitus Record cp - Alcohol Abuse and Nutrition cp - Blood Glucose Monitoring, Adult cp - Diabetes Mellitus and Nutrition, Adult cp - Aspirin and Your Heart cp Forms: - Medication Reconciliation Form cp - Thank You Letter cp - Antibiotic Education cp - Prescription Opioid Use cp - Patient Portal Instructions cp - Leadership Thank You Letter cp Prescriptions: - Metformin 500 mg Oral tablet - take 1 tablet ORAL route every 12 hours Then take 1 tablet with morning meals cp AND evening meals; 30 tablet; Refills: 0, Product Selection Permitted - Metoprolol Tartrate 25 mg Oral tablet - take 1 tablet ORAL route 2 times per day with a meal; 30 tablet; Refills: 0, cp Product Selection Permitted Signatures: Dispatcher [employer] Jordi Quinteros PA PA cp Jaco, Norma, RN RN nj1 Niru Turk cp4 Mariana Coates RN jw7
--- NOTE | 2023-08-10 20:11 | ER ---
Nurse's Notes [facility] Name: Anam Mares Age: 38 yrs Sex: Male : 1985 Arrival Date: 08/10/2023 Time: 16:35 Bed 14 Private MD: Diagnosis: Alcohol dependence with intoxication;Diabetes mellitus due to underlying condition with hyperglycemia;Hypertensive heart disease without heart failure Presentation: 08/10 16:43 Chief complaint: Sister states he called her saying he wasn't feeling well. Has said he nj1 drank over a gallon of vodka during the last 24hrs. Stopped drinking alcohol about an hour ago. Unable to describe symptoms. Has not taken any blood pressure neither diabetes medications for a "while" because he has been busy "working". Coronavirus screen: Vaccine status: Patient reports being unvaccinated. Ebola Screen: Patient denies travel to an Ebola-affected area in the 21 days before illness onset. Initial Sepsis Screen: Does the patient meet any 2 criteria? HR > 90 bpm. No. Patient's initial sepsis screen is negative. Does the patient have a suspected source of infection? No. Patient's initial sepsis screen is negative. Risk Assessment: Do you want to hurt yourself or someone else? Patient reports no desire to harm self or others. Onset of symptoms was August 10, 2023. 16:43 Method Of Arrival: Ambulatory [facility] 16:43 Acuity: MAYA 2 nj1 Historical: - Allergies: 16:47 Ceclor; nj1 - PMHx: 16:47 Hypertensive disorder; Diabetes mellitus; nj1 - Immunization history:: Client reports having NOT received the Covid vaccine. - Social history:: Smoking status: Reported history of juuling and/or vaping. Screenin:27 [facility] ED Fall Risk Assessment (Adult) History of falling in the last 3 months, cp4 including since admission No falls in past 3 months (0 pts) Confusion or Disorientation No (0 pts) Intoxicated or Sedated No (0 pts) Impaired Gait No (0 pts) Mobility Assist Device Used No (0 pt) Altered Elimination No (0 pt) Score/Fall Risk Level 0 - 2 = Low Risk. 19:27 Abuse screen: Denies threats or abuse. Nutritional screening: No deficits noted. cp4 Tuberculosis screening: No symptoms or risk factors identified. Assessment: 19:27 General: Appears in no apparent distress. Behavior is calm, cooperative, appropriate cp4 for age. Pain: Denies pain. Psych: 20:27 [place] Suicide Severity Screening: In the past month, have you wished you were cp4 or wished you could go to sleep and not wake up? Patient responds "No." "In the past month, have you actually had any thoughts of killing yourself?" Patient responds "no." "In your lifetime, have you ever done anything, started to do anything, or prepared to do anything to end your life?" Patient responds "no.". Subjective: Patient's mood is normal. Objective: Patient is cooperative, Speech is normal, Affect is appropriate. Patient uses. Vital Signs: 16:43 BP 163 / 120; Pulse 129; Resp 18; Temp 98.5(O); Pulse Ox 97% ; Weight 108.86 kg; Height nj1 6 ft. 2 in. ; 19:26 BP 146 / 101; Pulse 117; Resp 18; Pulse Ox 98% ; cp4 19:59 BP 146 / 101; Pulse 107; Resp 18; Pulse Ox 100% ; cp4 16:43 Body Mass Index 30.81 (108.86 kg, 187.96 cm) nj1 ED Course: 16:38 Patient arrived in ED. mr 16:43 Jordi Bolaños PA is PHCP. cp 16:43 Jordi Diaz MD is Attending Physician. cp 16:46 Triage completed. nj1 16:47 Arm band placed on right wrist. nj1 17:13 Inserted saline lock: 20 gauge in left antecubital area, using aseptic technique. Blood cp4 collected. 17:14 Acetaminophen Sent. bc6 17:14 Basic Metabolic Panel Sent. bc6 17:14 CBC with Diff Sent. bc6 17:14 ETOH Level Sent. bc6 17:14 Hepatic Function Sent. bc6 17:14 PT-INR Sent. bc6 17:14 Ptt, Activated Sent. bc6 17:14 Salicylate Sent. bc6 17:15 Urinalysis w/ reflexes Sent. bc6 17:15 Urine Drug Screen Sent. bc6 18:56 Niru Turk is Primary Nurse. cp4 19:27 Bed in low position. Call light in reach. Side rails up X 1. Provided Education on: cp4 etoh abuse. 19:27 No provider procedures requiring assistance completed. cp4 20:26 intact, bleeding controlled, No redness/swelling at site. Pressure dressing applied. cp4 Administered Medications: 19:29 Drug: Insulin Regular Human Sub-Q 10 units Sub-Q once {Co-Signature: ricky (Mariana Coates cp4 RN).} Route: Sub-Q; Site: right upper arm; 20:08 Follow up: Response: No adverse reaction cp4 19:35 Drug: NS 0.9% IV 1000 ml IV at 1 bolus Per protocol; 1000 mL bolus Route: IV; Rate: 1 cp4 bolus; Site: left antecubital; 19:35 Drug: Ondansetron IVP 4 mg IVP once; over 2 minutes Route: IVP; Site: left antecubital; cp4 20:07 Follow up: Response: No adverse reaction cp4 19:35 Drug: Famotidine IVP 20 mg IVP once; dilute with 10 mL 0.9% NaCl; give over 2 minutes cp4 Route: IVP; Site: left antecubital; 20:08 Follow up: Response: No adverse reaction cp4 19:59 Drug: Metoprolol PO 25 mg PO once Route: PO; cp4 Medication: 19:27 VIS not applicable for this client. cp4 Outcome: 20:10 Discharge ordered by MD. cp 20:26 Discharged to home ambulatory, cp4 20:26 Condition: stable 20:26 Discharge instructions given to patient, Instructed on discharge instructions, follow up and referral plans. medication usage, substance abuse resources Demonstrated understanding of instructions, follow-up care, 20:28 Patient left the ED. cp4 Signatures: Roberta Spears, Krishna Keller mr Jordi Bolaños PA PA cp Tonia Chowdhury 6 Lakeisha Hendricks, RN RN nj1 Niru Turk cp4 Mariana Coates RN jw7 Corrections: (The following items were deleted from the chart) 16:46 16:43 Pulse 129bpm; Resp 18bpm; Pulse Ox 97%; Temp 98.5F Oral; 108.86 kg; Height 6 ft. nj1 2 in.; BMI: 30.8; nj1 16:47 16:43 Chief complaint: Sister states he called her saying he wasn't feeling well. Has nj1 said he drank over a gallon of vodka during the last 24hrs. Stopped drinking alcohol about an hour ago. Unable to describe symptoms. nj1 19:29 19:27 Inserted saline lock: 20 gauge in left antecubital area, using aseptic technique. cp4 Blood collected. cp4
[2023-08-10 21:00] VITALS: BP 146/101; TEMP 98.5; O2SAT 100
--- NOTE | 2023-08-11 14:29 | EKG ---
Test Date: 2023-08-10 Test Time: 19:16:02 Tanker Truck Driver: MANJIT MEASUREMENT RESULTS: Intervals: Rate: 115 NV: 158 QRSD: 120 QT: 340 QTc: 470 [place]: P: 60 NV: 158 QRS: 131 T: 48 INTERPRETIVE STATEMENTS: Sinus tachycardia Otherwise normal ECG Compared to ECG 01/01/2022 20:36:56 Sinus rhythm no longer present Incomplete right bundle-branch block no longer present Electronically Signed On 08-11-23 14:26:22 SNACK BAR ATTENDANT by Mamadou Cummings
== END ==
LOC: ER 16:35
DX: F10.229 Alcohol dependence with intoxication, unspecified (principal); E11.65 Type 2 diabetes mellitus with hyperglycemia; I11.9 Hypertensive heart disease without heart failure
CPT/HCPCS: 36415; 80048; 80076; 80143; 80179; 80307; 81003; 82077; 82947; 85025; 85610; 85730; 93005; 96372; 96374; 96375; 99284; J1815; J2405; J7030

== ENCOUNTER 2023-12-09 16:55 | Emergency (ER) | payer SELFPAY ==
[2023-12-09] MEDS ORDERED: NA CHLORIDE 0.9% 1,000 ML ONE (17:35)
[2023-12-09] MEDS ORDERED: ONDANSETRON 4 MG/2 ML VIAL ONE (17:35)
[2023-12-09] MEDS ORDERED: KETOROLAC 30 MG/ML INJ ONE (17:35)
[2023-12-09 17:38] LABS: Absolute Eosinophils 0.1 K/uL (0-0.5); Absolute Lymphocytes (CBC) 1.8 K/uL (0.7-4.9); Absolute Monocytes 0.7 K/uL (0.1-1.3); Absolute Neutrophil 3.8 K/uL (1.8-8.0); Basophils % 0.5 % (0-1.3); Eosinophils % 2.1 % (0-4.4); Hematocrit 46.2 % (39.6-49.0); Hemoglobin 16.2 g/dL (13.6-17.9); Lymphocytes % 27.3 % (15.3-44.8); MCH 31.4 pg (27.0-35.0); MCHC 35.1 g/dL (32.0-36.0); MCV 89.4 fL (80-100); MPV 7.6 fL (7.6-11.3); Monocytes % 11.1 % (3.3-12.3); Platelets 153 thou/uL (152-406); RBC Red Blood Cell Count 5.17 M/uL (4.33-5.43); Red Cell Distribution Width 13.3 % (12.1-15.2)
[2023-12-09 17:54] LABS: Albumin 3.7 g/dL (3.4-5.0); Albumin/Globulin Ratio 1.2 (1.1-1.8); Anion Gap 13.8 mEq/L (5.0-15.0); Bilirubin Direct 0.3 mg/dL (0-0.2); Bilirubin Indirect, Calculated 0.8 mg/dL (0.2-0.8); Bilirubin Total 1.1 mg/dL (0.2-1.0); Globulin 3.1 g/dL (2.3-3.5); Protein, Total 6.8 g/dL (6.4-8.2)
[2023-12-09 17:56] LABS: Potassium 3.8 mEq/L (3.5-5.1)
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
[2023-12-09] MEDS ORDERED: INSULIN GLARGINE 100 UNIT/ML SQ ONE (20:30)
[2023-12-09 21:44] VITALS: BP 183/90; TEMP 98; O2SAT 100
== END 2023-12-09 20:54 | disposition home or self-care (01) ==
LOC: ER 16:55
DX: R10.811 Right upper quadrant abdominal tenderness (principal); V49.49XA Driver injured in collision with other motor vehicles in traffic accident, initial encounter; I10 Essential (primary) hypertension; E11.65 Type 2 diabetes mellitus with hyperglycemia
CPT/HCPCS: 36415; 70450; 71260; 72125; 74177; 80048; 80076; 82947; 83690; 85025; 86850; 86900; 86901; J2405; J7030; Q9967

== ENCOUNTER 2024-02-05 10:00 | Observation (INO) | payer SELFPAY ==
[2024-02-05] MEDS ORDERED: MORPHINE 4 MG/ML SYR ONE (10:51)
[2024-02-05] MEDS ORDERED: ONDANSETRON 4 MG/2 ML VIAL ONE (10:51)
[2024-02-05] MEDS ORDERED: NA CHLORIDE 0.9% 1,000 ML ONE ×2 (10:52→13:21)
[2024-02-05 11:32] LABS: Absolute Eosinophils 0.1 K/uL (0-0.5); Absolute Lymphocytes (CBC) 1.7 K/uL (0.7-4.9); Absolute Monocytes 0.7 K/uL (0.1-1.3); Absolute Neutrophil 4.5 K/uL (1.8-8.0); Basophils % 0.5 % (0-1.3); Eosinophils % 1.9 % (0-4.4); Hematocrit 44.1 % (39.6-49.0); Hemoglobin 15.5 g/dL (13.6-17.9); Lymphocytes % 23.4 % (15.3-44.8); MCH 31.4 pg (27.0-35.0); MCHC 35.2 g/dL (32.0-36.0); MCV 89.4 fL (80-100); MPV 7.5 fL (7.6-11.3); Monocytes % 10.2 % (3.3-12.3); Nucleated Red Blood Cells % 0.5 % (0-0); Platelets 195 thou/uL (152-406); RBC Red Blood Cell Count 4.94 M/uL (4.33-5.43); Red Cell Distribution Width 13.5 % (12.1-15.2)
[2024-02-05 11:49] LABS: Albumin 4.4 g/dL (3.4-5.0); Albumin/Globulin Ratio 1.2 (1.1-1.8); Bilirubin Total 2.2 mg/dL (0.2-1.0); Globulin 3.6 g/dL (2.3-3.5)
--- NOTE | 2024-02-05 12:09 | RAD REPORT ---
EXAM DESCRIPTION: CT - Abdomen Pelvis Wo Contrast - 02/05/2024 11:58 am CLINICAL HISTORY: Abdominal pain COMPARISON: None TECHNIQUE: Computed axial tomography of the abdomen and pelvis was obtained. IV and oral contrast we re not requested. All CT scans are performed using dose optimization technique as appropriate and may include automated exposure control or mA/KV adjustment according to patient size. FINDINGS: The evaluation of solid organs, vessels and bowel is limited secondary to the lack of con trast administration. Spleen measures 15 centimeters. The liver, pancreas, adrenals and kidneys grossly normal The appendix is normal. There is no evidence of diverticulitis. IMPRESSION: Mild splenomegaly
[2024-02-05 12:34] LABS: Specific Gravity 1.021 (1.005-1.030); Sqamous Epithelial None Seen /HPF (None Seen); Urine Bacteria None Seen /HPF (<20); Urine Bilirubin 1+ (Negative); Urine Blood Negative (Negative); Urine Clarity Extremely Turbid (Clear); Urine Color Yellow (Yellow); Urine Culture Reflex Order NOT NEEDED; Urine Glucose NEGATIVE (Negative); Urine Ketones TRACE (Negative); Urine Microscopic Reflex YN ORDER UMIC; Urine Mucus 1+ /HPF (None Seen); Urine Nitrite NEGATIVE (Negative); Urine Protein 1+ (Negative); Urine RBC <5 /HPF (None Seen); Urine Urobilinogen 1+ (Normal); Urine WBC <5 /HPF (<5)
[2024-02-05] MEDS ORDERED: KCL 20 MEQ/100 mL IVPB 200 ML IV ONE (13:21)
[2024-02-05 13:34] LABS: Blood O2 Saturation 96.7 % (92-98.5)
[2024-02-05 13:35] LABS: Arterial Blood Carboxyhemoglob 1.4 % (0-1.5); Blood Gas Oxyhemoglobin 93.7 % (94-97); Blood Gas THB 15.6 g/dl (12-18)
[2024-02-05 14:08] LABS: BETA HYDROXYBUTYRATE 0.98 mmol/L (0.02-0.27)
--- NOTE | 2024-02-05 14:21 | RAD REPORT ---
EXAM DESCRIPTION: US - Abdomen Exam Limited - 02/05/2024 1:33 pm CLINICAL HISTORY: RUQ COMPARISON: Abdomen Pelvis Wo Contrast dated 02/05/2024 TECHNIQUE: Sonographic grayscale and color flow images of the right upper abdominal quadrant were o btained. FINDINGS: The gallbladder demonstrates no gallstones. No pericholecystic fluid or gallbladder wall t hickening. The common bile duct is normal measuring 4 mm. The liver demonstrates no findings of intrahepatic biliary dilatation. IMPRESSION: Unremarkable right upper quadrant ultrasound.
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
--- NOTE | 2024-02-05 14:41 | EDPHYS ---
Physician Documentation [facility] Name: Anam Mares Age: 38 yrs Sex: Male : 1985 Arrival Date: 02/05/2024 Time: 10:00 Bed 15 Private MD: ED Physician Sadiq Bean HPI: 02/04 10:31 This 38 yrs old Male presents to ER via Ambulatory with complaints of Vomiting. rt 10:31 Patient with history of diabetes presents to the ED with nausea, vomiting starting rt yesterday. Reports an epigastric pain. Denies hematemesis, hematochezia. Denies other acute complaints at this time, symptoms are moderate in severity, no other aggravating or alleviating factors.. Historical: - Allergies: 10:18 Ceclor; iw - Home Meds: 17:21 metformin 500 mg Oral tablet [Active]; kj2 - PMHx: 10:18 diabetes mellitus; Hypertensive disorder; iw - PSHx: 10:18 None; iw - Immunization history:: Adult Immunizations not up to date. - Infectious Disease History:: Denies. - Social history:: Smoking status: Patient/guardian denies using tobacco, Stopped _ months ago 2. - Family history:: not pertinent. ROS: 10:31 Constitutional: Negative for fever, chills, and weight loss, Cardiovascular: Negative rt for chest pain, palpitations, and edema, Respiratory: Negative for shortness of breath, cough, wheezing, and pleuritic chest pain, MS/Extremity: Negative for injury and deformity, Skin: Negative for injury, rash, and discoloration, Neuro: Negative for headache, weakness, numbness, tingling, and seizure, Psych: Negative for depression, anxiety, suicide ideation, homicidal ideation, and hallucinations, 10:31 Abdomen/GI: Positive for abdominal pain, nausea and vomiting, Exam: 10:31 Constitutional: This is a well developed, well nourished patient who is awake, alert, rt and in no acute distress. Head/Face: Normocephalic, atraumatic. Chest/axilla: Normal chest wall appearance and motion. Nontender with no deformity. No lesions are appreciated. Cardiovascular: Regular rate and rhythm with a normal S1 and S2. No gallops, murmurs, or rubs. Normal PMI, no JVD. No pulse deficits. Respiratory: Lungs have equal breath sounds bilaterally, clear to auscultation and percussion. No rales, rhonchi or wheezes noted. No increased work of breathing, no retractions or nasal flaring. Skin: Warm, dry with normal turgor. Normal color with no rashes, no lesions, and no evidence of cellulitis. MS/ Extremity: Pulses equal, no cyanosis. Neurovascular intact. Full, normal range of motion. Neuro: Awake and alert, GCS 15, oriented to person, place, time, and situation. Cranial nerves II-XII grossly intact. Motor strength 5/5 in all extremities. Sensory grossly intact. Cerebellar exam normal. Normal gait. 10:31 Abdomen/GI: Mild epigastric tenderness, without rebound, guarding, distention, 13:39 ECG was reviewed by the Attending Physician. rt Vital Signs: 10:19 BP 139 / 91; Pulse 107; Resp 18; Temp 97.6(O); Pulse Ox 98% on R/A; Weight 108.86 kg; iw Height 6 ft. 2 in. ; Pain 8/10; 11:17 BP 120 / 91; Pulse 98; Resp 20; Pulse Ox 96% on R/A; kj2 13:44 BP 130 / 98; Pulse 82; Resp 20; Temp 98.2; Pulse Ox 97% on R/A; kj2 17:20 BP 142 / 98; Pulse 84; Resp 14; Temp 98.2; Pulse Ox 97% on R/A; kj2 10:19 Body Mass Index 30.81 (108.86 kg, 187.96 cm) iw 10:19 Pain Scale: Adult iw MDM: 10:21 Patient medically screened. rt 14:58 Differential diagnosis: Dehydration, gastroenteritis, rhabdomyolysis, renal failure, rt electrolyte disturbance. Data reviewed: vital signs, nurses notes, lab test result(s), EKG, radiologic studies. Consideration of Admission/Observation Patient was admitted/placed on observation. Management of patient was discussed with the following: Hospitalist: Agrees to admit. I considered the following discharge prescriptions or medication management in the emergency department Medications were administered in the Emergency Department. See MAR. Independent interpretation of the following test(s) in the Emergency Department CT Scan: My interpretation is No bowel obstruction seen on interpretation of CT scan images. Care significantly affected by the following chronic conditions: Diabetes, Hypertension. Counseling: I had a detailed discussion with the patient and/or guardian regarding the historical points, exam findings, and any diagnostic results supporting the discharge/admit diagnosis, lab results, radiology results, the need for further work-up and treatment in the hospital. Response to treatment: the patient's symptoms have mildly improved after treatment. 02/04 10:26 Order name: CBC with Diff; Complete Time: 11:43 rt 02/04 10:26 Order name: CMP; Complete Time: 12:13 rt 02/04 10:26 Order name: Lipase; Complete Time: 12:13 rt 02/04 10:26 Order name: Urinalysis w/ reflexes; Complete Time: 12:34 rt 02/04 13:02 Order name: BHB; Complete Time: 14:09 rt 02/04 13:02 Order name: ABG: vbg only; Complete Time: 14:09 rt 02/04 13:02 Order name: CPK; Complete Time: 14:09 rt 02/04 15:28 Order name: Magnesium EDMS 02/04 15:28 Order name: CBC with Automated Diff EDMS 02/04 15:28 Order name: CBC with Automated Diff EDMS 02/04 15:28 Order name: Comprehensive Metabolic Panel EDMS 02/04 15:28 Order name: Comprehensive Metabolic Panel EDMS 02/04 15:28 Order name: Magnesium EDMS 02/04 15:28 Order name: Magnesium EDMS 02/04 15:28 Order name: Phosphorus EDMS 02/04 15:28 Order name: Phosphorus EDMS 02/04 12:00 Order name: Abdomen ; Complete Time: 12:13 EDMS 02/04 13:02 Order name: US Abdomen Limited; Complete Time: 14:22 rt 02/04 13:02 Order name: EKG; Complete Time: 13:02 rt 02/04 10:26 Order name: IV Saline Lock; Complete Time: 11:14 rt 02/04 10:26 Order name: Labs collected and sent; Complete Time: 11:14 rt 02/04 13:02 Order name: EKG - Nurse/Tech; Complete Time: 13:44 rt EC:39 Rate is 81 beats/min. Rhythm is regular, Normal Sinus Rhythm with No ectopy. QRS [place] rt is Normal. CO interval is normal. QRS interval is normal. QT interval is normal. No Q waves. T waves are Normal. No ST changes noted. Interpreted by me. Administered Medications: 11:05 Drug: NS 0.9% IV 1000 ml IV at 1 bolus Per protocol; 1000 mL bolus Route: IV; Rate: 1 kj2 bolus; Site: right antecubital; 12:05 Follow up: Response: No adverse reaction; IV Status: Completed infusion; IV Intake: kj2 1000ml 11:08 Drug: Ondansetron IVP 4 mg IVP once; over 2 minutes Route: IVP; Site: right antecubital;kj2 11:45 Follow up: Response: No adverse reaction; Nausea is decreased kj2 11:10 Drug: morphine IVP or IV 4 mg IVP once over 4 mins Route: IVP; Infused Over: 4 mins; kj2 Site: right antecubital; 11:45 Follow up: Response: No adverse reaction; Pain is decreased kj2 13:31 Drug: NS 0.9% IV 1000 ml IV at 1 bolus Per protocol; 1000 mL bolus Route: IV; Rate: 1 kj2 bolus; Site: right antecubital; 13:31 Drug: Potassium Chloride IV 40 mEq IV at calculated rate once; administer over 4 hours kj2 Route: IV; Rate: calculated rate; Site: right antecubital; Disposition Summary: 02/05/24 14:40 Hospitalization Ordered Notes: Hospitalization Status: Inpatient Admission rt Provider: Robin Carrillo rt Location: Telemetry/[facility] (Inpatient) rt Condition: Stable rt Problem: new rt Symptoms: have improved rt Bed/Room Type: Standard rt Room Assignment: 201(02/05/24 16:44) cm10 Diagnosis - Nausea and vomiting rt - Hypokalemia rt - Hyponatremia rt - Acute kidney injury rt Forms: - Medication Reconciliation Form rt - SBAR form rt - Leadership Thank You Letter rt Critical care time excluding procedures: 14:58 Critical care time: Bedside Care: 30 minutes, Consultation: 5 minutes. Total time: 35 rt minutes Signatures: Dispatcher [employer] EDLeann Willingham RN RN iw Sadiq Bean MD MD rt Tory Wallace RN RN cm10 Joy Weaver RN RN kj2 Corrections: (The following items were deleted from the chart) 10:27 10:27 CBC+H.LAB.BRZ ordered. EDMS EDMS 10:27 10:27 COMPREHENSIVE METABOLIC PANEL+C.LAB.BRZ ordered. EDMS EDMS 10:27 10:27 LIPASE+C.LAB.BRZ ordered. EDMS EDMS 10:27 10:27 Urinalysis+U.LAB.BRZ ordered. EDMS EDMS 12:00 10:27 Abdomen Pelvis W Con+CT.RAD.BRZ ordered. EDMS EDMS 16:44 14:40 rt cm10
--- NOTE | 2024-02-05 14:41 | ER ---
Nurse's Notes [facility] Name: Anam Mares Age: 38 yrs Sex: Male : 1985 Arrival Date: 02/05/2024 Time: 10:00 Bed 15 Private MD: Diagnosis: Nausea and vomiting;Hypokalemia;Hyponatremia;Acute kidney injury Presentation: 02/04 10:17 Chief complaint: Patient states: feels dehydrated, vomited 3 times yesterday and twice iw today. 10:17 Acuity: MAYA 3 iw 10:17 Method Of Arrival: Ambulatory iw 11:23 Coronavirus screen: At this time, the client does not indicate any symptoms associated kj2 with coronavirus-19. Ebola Screen: No symptoms or risks identified at this time. Initial Sepsis Screen: Does the patient meet any 2 criteria? No. Patient's initial sepsis screen is negative. Does the patient have a suspected source of infection? No. Patient's initial sepsis screen is negative. Risk Assessment: Do you want to hurt yourself or someone else? Patient reports no desire to harm self or others. Onset of symptoms was February 05, 2024. Historical: - Allergies: 10:18 Ceclor; iw - Home Meds: 17:21 metformin 500 mg Oral tablet [Active]; kj2 - PMHx: 10:18 diabetes mellitus; Hypertensive disorder; iw - PSHx: 10:18 None; iw - Immunization history:: Adult Immunizations not up to date. - Infectious Disease History:: Denies. - Social history:: Smoking status: Patient/guardian denies using tobacco, Stopped _ months ago 2. - Family history:: not pertinent. Screenin:22 [facility] ED Fall Risk Assessment (Adult) History of falling in the last 3 months, kj2 including since admission No falls in past 3 months (0 pts) Confusion or Disorientation No (0 pts) Intoxicated or Sedated No (0 pts) Impaired Gait No (0 pts) Mobility Assist Device Used No (0 pt) Altered Elimination No (0 pt) Score/Fall Risk Level 0 - 2 = Low Risk Maintained a safe environment, Hourly rounding (assess needs \T\ fall precautionary measures) done. Abuse screen: Denies threats or abuse. Denies injuries from another. Nutritional screening: No deficits noted. Tuberculosis screening: No symptoms or risk factors identified. Assessment: 11:00 General: Appears uncomfortable, Behavior is calm, cooperative. Pain: Complains of pain kj2 in abdomen Pain currently is 8 out of 10 on a pain scale. Neuro: Level of Consciousness is awake, alert, obeys commands, Oriented to person, place, time, situation. Cardiovascular: Patient's skin is warm and dry. Respiratory: Airway is patent Respiratory effort is unlabored. GI: Reports nausea, vomiting, since yesterday. : No deficits noted. 12:11 Reassessment: Patient appears in no apparent distress at this time. Patient and/or kj2 family updated on plan of care and expected duration. Pain level reassessed. Patient is alert, oriented x 3, equal unlabored respirations, skin warm/dry/pink. 13:32 Reassessment: Patient appears in no apparent distress at this time. Patient and/or kj2 family updated on plan of care and expected duration. Pain level reassessed. Patient is alert, oriented x 3, equal unlabored respirations, skin warm/dry/pink. 14:40 Reassessment: Patient appears in no apparent distress at this time. Patient and/or kj2 family updated on plan of care and expected duration. Pain level reassessed. Patient is alert, oriented x 3, equal unlabored respirations, skin warm/dry/pink. Vital Signs: 10:19 BP 139 / 91; Pulse 107; Resp 18; Temp 97.6(O); Pulse Ox 98% on R/A; Weight 108.86 kg; iw Height 6 ft. 2 in. ; Pain 8/10; 11:17 BP 120 / 91; Pulse 98; Resp 20; Pulse Ox 96% on R/A; kj2 13:44 BP 130 / 98; Pulse 82; Resp 20; Temp 98.2; Pulse Ox 97% on R/A; kj2 17:20 BP 142 / 98; Pulse 84; Resp 14; Temp 98.2; Pulse Ox 97% on R/A; kj2 10:19 Body Mass Index 30.81 (108.86 kg, 187.96 cm) iw 10:19 Pain Scale: Adult iw ED Course: 10:02 Patient arrived in ED. ec2 10:09 Sadiq Bean MD is Attending Physician. rt 10:18 Triage completed. iw 10:47 Owen, Joy, RN is Primary Nurse. kj2 11:14 CBC with Diff Sent. kj2 11:14 CMP Sent. kj2 11:14 Initial lab(s) drawn, by ED staff, sent to lab. cm10 11:18 No provider procedures requiring assistance completed. Inserted saline lock: 20 gauge kj2 in right antecubital area, using aseptic technique. Blood collected. Flushed with 10 mL NS. 11:22 Patient has correct armband on for positive identification. Bed in low position. Call kj2 light in reach. Provided Education on: call light, fall precautions. 11:24 Arm band placed on. kj2 12:00 Abdomen In Process Unspecified. EDMS 13:35 US Abdomen Limited In Process Unspecified. EDMS 13:44 CPK Sent. kj2 14:07 EKG done, by ED staff, reviewed by Sadiq Bean MD. cm10 14:39 Robin Carrillo is Hospitalizing Provider. rt 14:55 CM met with patient at bedside in the ED exam room. Patient identified by name and . ane Demographic sheet confirmed. Patient reports lives alone in a single story home. Prior to admission, patient reports he perform ADLs independently and without physical limitations. No HH, home oxygen, DME or other medical services. No MPOA in place at this time. 's preferred plan is to return home upon discharge. Patient reports he has his vehicle and is able to transport himself home, and if needed, his mother Rabia can drive him home. CM team will continue to follow and coordinate care. 17:56 Patient admitted, IV remains in place. mb9 Administered Medications: 11:05 Drug: NS 0.9% IV 1000 ml IV at 1 bolus Per protocol; 1000 mL bolus Route: IV; Rate: 1 kj2 bolus; Site: right antecubital; 12:05 Follow up: Response: No adverse reaction; IV Status: Completed infusion; IV Intake: kj2 1000ml 11:08 Drug: Ondansetron IVP 4 mg IVP once; over 2 minutes Route: IVP; Site: right antecubital;kj2 11:45 Follow up: Response: No adverse reaction; Nausea is decreased kj2 11:10 Drug: morphine IVP or IV 4 mg IVP once over 4 mins Route: IVP; Infused Over: 4 mins; kj2 Site: right antecubital; 11:45 Follow up: Response: No adverse reaction; Pain is decreased kj2 13:31 Drug: NS 0.9% IV 1000 ml IV at 1 bolus Per protocol; 1000 mL bolus Route: IV; Rate: 1 kj2 bolus; Site: right antecubital; 13:31 Drug: Potassium Chloride IV 40 mEq IV at calculated rate once; administer over 4 hours kj2 Route: IV; Rate: calculated rate; Site: right antecubital; Medication: 11:23 VIS not applicable for this client. kj2 Intake: 12:05 IV: 1000ml; Total: 1000ml. kj2 Outcome: 14:40 Decision to Hospitalize by Provider. rt 17:57 Admitted to Med/surg via wheelchair, mb9 17:57 Condition: stable 17:57 Instructed on the need for admit, 17:57 Patient left the ED. mb9 17:57 Admitted to Med/surg accompanied by tech, via wheelchair, room 201, kj2 17:57 Condition: stable 17:57 Instructed on the need for admit, Signatures: Dispatcher [employer] Leann Kong RN RN iw Ken, Roberta Shi RN RN mb9 Sadiq Bean MD MD rt Tory Wallace RN RN cm10 Denver Perez MD MD ec2 Joy Weaver RN RN kj2 Mikayla Arreola RN RN ane Corrections: (The following items were deleted from the chart) 10:23 10:19 BP 139 / 91; Pulse 107bpm; Resp 18bpm; Pulse Ox 98% RA; 108.86 kg; Height 6 ft. 2 iw in.; BMI: 30.8; Pain 8/10, Adult; iw
[2024-02-05] MEDS ORDERED: NA CHLORIDE 0.9% 500 ML ONE ×2 (14:42→17:14)
[2024-02-05] MEDS ORDERED: ACETAMINOPHEN 325 MG TABLET PO PRN (15:16)
[2024-02-05] MEDS: INSULIN REGULAR (HUMAN) 100 UNIT/ML SQ SCH (16:30)
[2024-02-05 18:11] VITALS: BMI 30.2
[2024-02-05] MEDS: HEPARIN 5000 UNIT/ML 1 ML VIAL SQ SCH (18:25)
[2024-02-05] MEDS: NA CHLORIDE 0.9% 1,000 ML IV SCH (18:26)
[2024-02-05] MEDS: ACETAMINOPHEN 500 MG TAB PO PRN (19:57)
[2024-02-05] MEDS: MAGNESIUM 50% 3 GM in NA CHLORIDE 0.9% 100 ML IV ONE (20:01)
[2024-02-05] MEDS: Magnesium Sulfate 2gm IVPB 2 G/50 ML BAG IV ONE (20:21)
[2024-02-05] MEDS: MAGNESIUM SULFATE 1 gm IVPB 1 GM/100 ML BAG IV ONE (21:40)
[2024-02-05 22:35] VITALS: O2SAT 96
[2024-02-06 05:34] LABS: Absolute Eosinophils 0.1 K/uL (0-0.5); Absolute Lymphocytes (CBC) 1.1 K/uL (0.7-4.9); Absolute Monocytes 0.5 K/uL (0.1-1.3); Absolute Neutrophil 3.1 K/uL (1.8-8.0); Basophils % 0.5 % (0-1.3); Eosinophils % 3.1 % (0-4.4); Hemoglobin 13.2 g/dL (13.6-17.9); MCH 31.9 pg (27.0-35.0); MCHC 35.7 g/dL (32.0-36.0); MCV 89.3 fL (80-100); MPV 7.7 fL (7.6-11.3); Neutrophils % 63.4 % (41.7-73.7); Nucleated Red Blood Cells % 0.1 % (0-0); Platelets 154 thou/uL (152-406); RBC Red Blood Cell Count 4.15 M/uL (4.33-5.43); Red Cell Distribution Width 13.7 % (12.1-15.2)
[2024-02-06 06:28] LABS: Albumin 3.6 g/dL (3.4-5.0); Albumin/Globulin Ratio 1.3 (1.1-1.8); Anion Gap 11.1 mEq/L (5.0-15.0); Bilirubin Total 1.1 mg/dL (0.2-1.0); Globulin 2.8 g/dL (2.3-3.5); Magnesium 1.7 mg/dL (1.6-2.4); Phosphorus 3.2 mg/dL (2.5-4.9); Potassium 3.1 mEq/L (3.5-5.1); Protein, Total 6.4 g/dL (6.4-8.2)
[2024-02-06] MEDS: POTASSIUM 25 MEQ EFFERV TAB PO ONE (08:18)
[2024-02-06] MEDS: MAGNESIUM SULFATE 1 gm IVPB 1 GM/100 ML BAG IV ONE (08:21)
[2024-02-06 08:32] VITALS: BP 141/80; TEMP 97.8
--- NOTE | 2024-02-06 09:37 | P.DS ---
Admission Date: 02/05/24 Discharge Date: 02/06/24 Disposition: ROUTINE DISCHARGE Discharge Condition: FAIR Reason for Admission: intractable nausea/vomiting Brief History of Present Illness: Diagnosis Intractable nausea vomiting Dehydration VILMA secondary to dehydration Electrolyte imbalance Splenomegaly Transaminitis with elevated bilirubin Prolonged QT/QTc Diabetes mellitusNIDDM History of HTN History of GERD HPI 02/05/2024 Anam Mares is a 38 year old male with Pmhx GERD, HTN, and Diabetes Mellitus- NIDDM who presents to the ED with chief complaint of nausea and vomiting associated with epigastric pain. 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 While in the ED, it was noted that he is dehydrated with electrolyte imbalance and kidney injury. On examination, he denies abdominal pain to palpation but states it is sore from vomiting, he is hypertensive, and flushed face. Initial vitals BP 139 / 91; Pulse 107; Resp 18; Temp 97.6(O); Pulse Ox 98% on R/A Laboratory evaluation 2128, potassium 3.0, BUN/creatinine 18/2.51, GFR 33, bicarb 29, AST 56, ALT 70, total bili 2.2 CT abd/pelvis reports "The evaluation of solid organs, vessels and bowel is limited secondary to the lack of contrast administration. Spleen measures 15 centimeters. The liver, pancreas, adrenals and kidneys grossly normal. The appendix is normal. There is no evidence of diverticulitis. IMPRESSION: Mild splenomegaly." US abdomen reports "The gallbladder demonstrates no gallstones. No pericholecystic fluid or gallbladder wall thickening. The common bile duct is normal measuring 4 mm. The liver demonstrates no findings of intrahepatic biliary dilatation. IMPRESSION: Unremarkable right upper quadrant ultrasound." Anam will be admitted to hospitalist service for further treatment of dehydration, electrolyte imbalance, VILMA. Hospital Course: Anam Mares is a pleasant 38 year old with a past medical history significant for GERD, HTN, and Diabetes Mellitus-NIDDM who was admitted to the [facility] on 02/05/24 for intractable nausea/vomiting and dehydration. Anam presented to the ED with chief complaint of nausea/vomiting after working in the hot sun. 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 He feels these symptoms are similar. Creatinine elveated, hyponatremic, hypokale kam, hypomagnesemia, but CK normal. He has tolerated IV fluids and electrolyte replacement. Blood pressure and HR have remain stable. He has been educated to remain hydrated and avoid prolonged sun exposure for two days. He is tolerating PO diet, ambulating independently, and ready for discharge. On 02/06/24, Anam was seen on morning rounds and deemed medically stable for discharge. Anam was discharged with instructions to schedule follow-up appointments with PCP. Physical Exam General: Alert and Oriented x3, NAD HEENT: Atraumatic, Normocephalic, PERRLA Neck: Supple, 2+ carotid pulse no bruit, JVD not distended Respiratory: Clear to auscultation bilaterally, symmetrical air movement, on RA Cardiovascular: Normal pulses, RRR, Normal S1 S2 present Capillary refill: <2 Seconds Gastrointestinal: Normal bowel sounds, Soft on palpation, Non-tender Musculoskeletal: No clubbing Integumentary: No rashes Neurological: Normal speech, Normal tone Vital Signs/Physical Exam: Temp Pulse Resp BP Pulse Ox 97.8 F 88 18 141/80 H 97 02/06/24 08:00 02/06/24 08:00 02/06/24 08:00 02/06/24 08:00 02/06/24 08:00 Laboratory Data at Discharge: WBC 4.80 thou/uL (4.3-10.9) 02/06/24 05:15 Hgb 13.2 g/dL (13.6-17.9) L D 02/06/24 05:15 Hct 37.0 % (39.6-49.0) L 02/06/24 05:15 Plt Count 154 thou/uL (152-406) 02/06/24 05:15 Sodium 133 mEq/L (136-145) L D 02/06/24 05:15 Potassium 3.1 mEq/L (3.5-5.1) L 02/06/24 05:15 BUN 11 mg/dL (7-18) 02/06/24 05:15 Creatinine 1.01 mg/dL (0.70-1.30) 02/06/24 05:15 Glucose 164 mg/dL (74-106) H 02/06/24 05:15 Phosphorus 3.2 mg/dL (2.5-4.9) 02/06/24 05:15 Magnesium 1.7 mg/dL (1.6-2.4) 02/06/24 05:15 Total Bilirubin 1.1 mg/dL (0.2-1.0) H 02/06/24 05:15 AST 54 U/L (15-37) H 02/06/24 05:15 ALT 58 U/L (16-61) 02/06/24 05:15 Alkaline Phosphatase 59 U/L (45-117) 02/06/24 05:15 Lipase 33 U/L (13-75) 02/05/24 11:03 Home Medications: Metformin ER [Glucophage ER*] 500 mg PO BID 02/05/24 Olmesartan/Hydrochlorothiazide [Olmesartan-Hctz 40-12.5 mg Tab] 1 tab PO DAILY 02/05/24 Physician Discharge Instructions: Anam Mares was treated for dehydration associated with kidney injury and electrolyte imbalance. Please continue to stay hydrated and refrain long sun exposure for the next 2 days. 1. Please call and schedule a follow-up appointment with your PCP in 3-5 days - Please follow-up with your PCP for medication refills/adjustments 2. Continue regular diet 3. No activity restrictions, refrain from long sun exposure for 2 days 4. Return to the ED if symptoms worsen Diet: ADA Activity: Ad ashwin Followup: NONE,NONE [Primary Care Provider] -
--- NOTE | 2024-02-06 13:30 | EKG ---
Test Date: 2024-02-05 Test Time: 13:32:26 Laser Beam Cutter: ANGELA MEASUREMENT RESULTS: Intervals: Rate: 81 KS: 172 QRSD: 120 QT: 414 QTc: 480 [place]: P: 59 KS: 172 QRS: 53 T: 25 INTERPRETIVE STATEMENTS: Normal sinus rhythm Normal ECG Compared to ECG 08/10/2023 19:16:02 Sinus tachycardia no longer present Electronically Signed On 02-06-24 13:27:44 CDT by Eduar Acosta
== END 2024-02-06 10:21 | disposition home or self-care (01) ==
LOC: ER 10:00 → ERHOLD 15:16 → 2ND 17:49
PROVIDERS: ADMIT Internal Medicine; ATTEND Internal Medicine
DX: R11.2 Nausea with vomiting, unspecified (principal); E86.0 Dehydration; N17.9 Acute kidney failure, unspecified; E87.8 Other disorders of electrolyte and fluid balance, not elsewhere classified; R16.1 Splenomegaly, not elsewhere classified; K21.9 Gastro-esophageal reflux disease without esophagitis; I10 Essential (primary) hypertension; E11.9 Type 2 diabetes mellitus without complications; R10.13 Epigastric pain; R74.01 Elevation of levels of liver transaminase levels; R94.31 Abnormal electrocardiogram [ECG] [EKG]; Z87.891 Personal history of nicotine dependence
CPT/HCPCS: 36415; 36600; 74176; 76705; 80053; 81001; 82010; 82550; 82805; 82947; 83690; 83735; 84100; 85025; 93005; 96361; 96374; 96375; 99285; G0378; J1644; J2405; J3475; J3480; J7030; J7040